=== PATIENT | female | born 1985 | race Caucasian/White ===

== ENCOUNTER 2021-01-20 20:29 | Emergency (ER) | payer BC, SELFPAY ==
[2021-01-20 20:46] VITALS: BP 184/104; PULSE 100; RESP 18; TEMP 36.7; O2SAT 98; BMI 44.6
--- NOTE | 2021-01-20 21:36 | ED.ANIMALBIT ---
HPI - Animal Bite General Chief Complaint: Animal Bite Stated Complaint: dog bite Time Seen by Provider: 01/20/21 20:53 History of Present Illness HPI narrative: Patient 35-year-old female status post dog bite to the face. It is patient's own dog. The shots up-to-date. The patient was playing with the dog. Bitter in the lower lip. There is a laceration to both the right side and the left side. There was no loss of consciousness. Patient is unsure about his tetanus status. Related Data Previous Rx's Medication Instructions Recorded amoxicillin 875 mg-potassium 1 tab PO BID #14 tab 01/20/21 clavulanate 125 mg tablet (Augmentin) Allergies Allergy/AdvReac Type Severity Reaction Status Date / Time No Known Allergies Allergy Verified 01/20/21 20:53 Review of Systems Review of Systems: No fever no chills no nausea no vomiting no diaphoresis No head injury PMFSH Past Medical History Attestation statement: The following information was validated with the patient. Medical History No known health problems Social History Social History Advance Directives: No Advance Directives Information Provided: No Patient : No Physical Exam Vital Signs: Vital Signs: Last Vital Signs Temp 98.0 F 01/20/21 20:46 Pulse 100 01/20/21 20:46 Resp 18 01/20/21 20:46 BP 184/104 H 01/20/21 20:46 Pulse Ox 98 01/20/21 20:46 Body Mass Index 44.6 Appearance: Alert. Oriented X3. No acute distress. Eyes: Pupils equal, round and reactive to light. ENT: Pharynx normal. There is positive laceration to the lower lip. The right 1 is approximately 5 cm in size. It crosses the vermilion border. The left side is to improve. Approximately 6 cm in size. Also crosses the vermilion border. Neck: Normal inspection. Neck supple. No lymph nodes noted. No crepitus. There is no posterior C-spine tenderness. CVS: Normal heart rate and rhythm. Pulses normal. Normal S1 and S2 Respiratory: No respiratory distress. Breath sounds normal. No Wheezing. No rales Abdomen: Soft and nontender. No rigidity. No distention. good BS x4 Skin: Skin warm and dry. Normal skin color. Normal skin turgor. Extremities: No lower extremity edema. Neurovascular intact to all extremities. No Lacerations. No Rash Neuro: Oriented X 3. No motor deficit. No sensory deficit. Moving all extermities. No slurred speech MDM - Animal Bite MDM Narrative Medical decision making narrative: Patient given a tetanus shot. Both lacerations were closed. Will start patient on Augmentin is patient had a dog bite. It is a through and through laceration. Currently in stable condition. Suture removal in 5-7 days. Differential Diagnosis Differential diagnosis: Likely bite by animal Procedures Laceration Right lower lip laceration: Site: lip Side (If applicable): right Size (cm): 5 Description: linear, contaminated and involves samina border Depth: simple, single layer Local Anesthetic: lidocaine 1% Amount of anesthesia used (mL): 5 Pre-repair: wound explored, irrigated extensively and deep structures intact Skin layer closed with: nylon Size (cm): 5-0 Number of sutures: 6 Technique: simple, interrupted left lower lip: Site: lip Side (If applicable): left Size (cm): 7 Description: linear and involves samina border Depth: simple, single layer Local Anesthetic: lidocaine 1% Amount of anesthesia used (mL): 5 Pre-repair: wound explored, irrigated extensively and deep structures intact Skin layer closed with: nylon Size (cm): 5-0 Number of sutures: 6 Technique: simple, interrupted Subcutaneous layer closed with: chromic gut Size: 5-0 Number of sutures: 1 Technique: simple, interrupted Discharge Plan Discharge Clinical Impression: Bite by animal, Dog bite Patient Disposition: Home, Self-Care Instructions: Animal Bite (ED) Prescriptions: New amoxicillin-pot clavulanate [Augmentin] 875-125 mg tablet 1 tab PO BID Qty: 14 RF: 0 Referrals: Aziza Cornelius DO [Primary Care Provider] - 2 days (Suture removal in 5-7 days.)
[2021-01-20 21:46] VITALS: BP 148/68; PULSE 75; RESP 18; O2SAT 99
[2021-01-20] MEDS: Lidocaine HCl 1 % MPF 5 ML VIAL 10 ML SUBCUT (21:53)
[2021-01-20] MEDS: Amoxicillin/Potassium Clav 875 MG TABLET PO (21:53)
[2021-01-20] MEDS: Diphth,Pertus(ACell),Tet Adult 0.5 ML SYRINGE IM (21:53)
== END 2021-01-20 22:00 | disposition home or self-care (01) ==
PROVIDERS: Emergency Provider Emergency Medicine Emergency Medical Services; PCP Internal Medicine
DX: S01.551A Open bite of lip, initial encounter (principal); R51.9 Headache, unspecified; W54.0XXA Bitten by dog, initial encounter; Y93.9 Activity, unspecified; Y92.009 Unspecified place in unspecified non-institutional (private) residence as the place of occurrence of the external cause; Y99.9 Unspecified external cause status; Z79.899 Other long term (current) drug therapy
CPT/HCPCS: 12015; 90471; 90715; 99284